=== PATIENT | female | born 1995 | race Caucasian/White ===

== ENCOUNTER 2018-05-16 19:56 | Emergency (ER) | payer BC ==
[~2018-05-16] VITALS: Ht 162.6 cm; Wt 63.0 kg
[2018-05-16 20:11] VITALS: BP_SYST 129
[2018-05-16] MEDS ORDERED: AMOXICILLIN/CLAVULANATE POTASSIUM 875 MG TABLET PO ONE (20:45)
[2018-05-16] MEDS ORDERED: DIPH-TET-PERTUS Vaccine 0.5 ML VIAL (ADACEL) I.M. ONE (20:45)
[2018-05-16 21:20] VITALS: BP_SYST 125
== END 2018-05-16 21:20 | disposition home or self-care (01) ==
LOC: SED 19:56
DX: S61.330A Puncture wound without foreign body of right index finger with damage to nail, initial encounter (principal); W55.01XA Bitten by cat, initial encounter; Y93.89 Activity, other specified; Y92.89 Other specified places as the place of occurrence of the external cause; Y99.8 Other external cause status; R03.0 Elevated blood-pressure reading, without diagnosis of hypertension
CPT/HCPCS: 81025; 90715; 99283

== ENCOUNTER 2018-12-23 21:20 | Emergency (ER) | payer BC ==
[~2018-12-23] VITALS: Ht 162.6 cm; Wt 66.7 kg
[2018-12-23 21:38] VITALS: BP_SYST 144
--- NOTE | 2018-12-23 21:38 | NUR ---
Pt ambulatory to bed 6 for evaluation
--- NOTE | 2018-12-23 21:38 | NUR ---
Pt c/o light headedness with nausea x 2 hours [facility]. Pt states that she suddenly felt dizzy with blurred vision then became nauseated. Episode lasted approx. 30 min. Denies falling, no head injury, no LOC. No focal neurodeficits noted. Pt currently states that she feels better than before.
--- NOTE | 2018-12-23 21:45 | NUR ---
Dr. Garcia at bedside.
[2018-12-23 22:38] VITALS: BP_SYST 126
--- NOTE | 2018-12-23 22:38 | NUR ---
Patient given written and verbal discharge instructions and verbalizes understanding. ER MD discussed with patient the results and treatment provided. Patient in stable condition. ID arm band removed. Rx of Atarax given. Patient educated on pain management and to follow up with PMD. Pain Scale 0/10. Opportunity for questions provided and answered. Medication side effect fact sheet provided.
== END 2018-12-23 22:38 | disposition home or self-care (01) ==
LOC: SED 21:20
DX: R42 Dizziness and giddiness (principal); F41.9 Anxiety disorder, unspecified; R03.0 Elevated blood-pressure reading, without diagnosis of hypertension
CPT/HCPCS: 81002; 81025; 99283